=== PATIENT | male | born 1965 | race Caucasian/White ===

== ENCOUNTER 2018-09-01 07:30 | Outpatient (RCR) | payer OTHER, SELFPAY | END 2018-09-08 17:00 | disposition home or self-care (01) | LOC: PT 07:30 | PROVIDERS: Visit Provider Neurological Surgery | DX: M47.816 Spondylosis without myelopathy or radiculopathy, lumbar region (principal) | CPT/HCPCS: 97010; 97014; 97110; 97163; G0283 ==

== ENCOUNTER 2022-08-21 16:00 | Outpatient (RCR) | payer MEDICAID, SELFPAY | END 2022-08-23 13:51 | disposition home or self-care (01) | LOC: PT.CARL 16:00 | PROVIDERS: Visit Provider Anesthesiology Pain Medicine | DX: M47.816 Spondylosis without myelopathy or radiculopathy, lumbar region (principal) | CPT/HCPCS: 97110; 97163 ==

== ENCOUNTER 2023-10-08 17:00 | Outpatient (RCR) | payer MEDICAID, SELFPAY | END 2023-11-07 15:51 | disposition home or self-care (01) | LOC: PT 17:00 | PROVIDERS: Visit Provider Emergency Medicine | DX: M75.102 Unspecified rotator cuff tear or rupture of left shoulder, not specified as traumatic (principal); S46.002A Unspecified injury of muscle(s) and tendon(s) of the rotator cuff of left shoulder, initial encounter | CPT/HCPCS: 97010; 97014; 97035; 97110; 97140; 97163; G0283 ==